=== PATIENT | male | born 1970 | race African-American/Black ===

== ENCOUNTER 2017-07-29 22:13 | Emergency (ER) | payer OTHER ==
[2017-07-29 22:28] VITALS: BP 150/86; PULSE 84; RESP 18; TEMP 98.5
[2017-07-29] MEDS ORDERED: PENICILLIN VK 500MG STARTER 4 TAB BTL PO STA (22:42)
[2017-07-29] MEDS ORDERED: ACET/COD 300 MG/30 MG STARTER PACK 6 TAB BTL PO STA (22:42)
--- NOTE | 2017-07-29 22:45 | ED ---
ENT HPI - General Chief complaint: Dental/Oral Stated complaint: Dental Time Seen by Provider: 07/29/17 22:32 Source: patient, RN notes reviewed, old records reviewed Mode of arrival: ambulatory Limitations: no limitations - History of Present Illness Initial comments: This is a 46 year old male with CC of left lower dental pain for 1 week. Patient reports that he is scheduled to have a root canal on left lower molar on Monday. Patient states that he is concered there may be infection as his face has started to swell over the past 2 days. Patient reports that he has been taking motrin for pain. Denies fever, chills, trismus, four odor or taste. Denies any dental trauma. - Related Data Home Medications Medication Instructions Recorded Confirmed Insulin Glargine [Lantus] 20 units SQ HS 04/22/16 04/22/16 metFORMIN HCL [Glucophage] 500 mg PO BID 04/22/16 04/22/16 Previous Rx's Medication Instructions Recorded glipiZIDE [Glucotrol] 5 mg PO AC-BRKFST #10 tab 04/22/16 Acetaminophen-Codeine 300-30mg 1 tab PO Q4H PRN #12 tablet 07/29/17 [Tylenol #3] Penicillin V Potassium [Pen Vee K] 500 mg PO QID #40 tab 07/29/17 Allergies Allergy/AdvReac Type Severity Reaction Status Date / Time No Known Allergies Allergy Verified 07/29/17 22:28 Review of Systems ROS Statement: Those systems with pertinent positive or pertinent negative responses have been documented in the HPI. ROS Other: All systems not noted in ROS Statement are negative. Past Medical History Past Medical History: Diabetes Mellitus History of Any Multi-Drug Resistant Organisms: None Reported Past Surgical History: No Surgical Hx Reported Past Psychological History: No Psychological Hx Reported Smoking Status: Never smoker Past Alcohol Use History: None Reported Past Drug Use History: None Reported General Exam - General Exam Comments Initial Comments: Well appearing 46 year old AA male. No distress. Limitations: no limitations General appearance: alert, in no apparent distress Head exam: Present: atraumatic, normocephalic, normal inspection Eye exam: Present: normal appearance, PERRL, EOMI. Absent: scleral icterus, conjunctival injection, periorbital swelling ENT exam: Present: normal exam, mucous membranes moist. Absent: normal oropharynx (multiple broken teeth, left lower molar has broken tooth with dental caries. ) Neck exam: Present: normal inspection. Absent: tenderness, meningismus, lymphadenopathy Respiratory exam: Present: normal lung sounds bilaterally. Absent: respiratory distress, wheezes, rales, rhonchi, stridor Cardiovascular Exam: Present: regular rate, normal rhythm, normal heart sounds. Absent: systolic murmur, diastolic murmur, rubs, gallop, clicks GI/Abdominal exam: Present: soft, normal bowel sounds. Absent: distended, tenderness, guarding, rebound, rigid Extremities exam: Present: normal inspection, full ROM, normal capillary refill. Absent: tenderness, pedal edema, joint swelling, calf tenderness Back exam: Present: normal inspection Neurological exam: Present: alert, oriented X3, CN II-XII intact Psychiatric exam: Present: normal affect, normal mood Skin exam: Present: warm, dry, intact, normal color. Absent: rash Course Vital Signs 07/29/17 22:26 Temperature 98.5 F Pulse Rate 84 Respiratory 18 Rate Blood Pressure 150/86 O2 Sat by Pulse 98 Oximetry Medical Decision Making - Medical Decision Making This is a 46 year old male with one week of lower left dental pain. Patient has broken left molar, and multiple caries. Swelling noted on left lower cheek and gum. Patient will be started on penicillin for concern for dental abscess. Patient has a root canal on Monday. Patient advised to keep appointment but to take the antibiotics. PAtient discharged with short course of pain medication, return parameters discussed. Disposition Clinical Impression: Dental abscess Disposition: HOME SELF-CARE Condition: Good Instructions: Dental Abscess (ED) Additional Instructions: Patient advised to follow-up with dental clinic on Monday. Return to emergency department if any worsening signs or symptoms occur including severe swelling. Prescriptions: Acetaminophen-Codeine 300-30mg [Tylenol #3] 1 tab PO Q4H PRN #12 tablet PRN Reason: Pain Penicillin V Potassium [Pen Vee K] 500 mg PO QID #40 tab Referrals: Nicholas Rinaldi MD [Primary Care Provider] - 1-2 days Time of Disposition: 22:44
== END 2017-07-29 23:03 | disposition home or self-care (01) ==
LOC: EC 22:13
DX: K04.7 Periapical abscess without sinus (principal); S02.5XXA Fracture of tooth (traumatic), initial encounter for closed fracture; K02.9 Dental caries, unspecified; E11.9 Type 2 diabetes mellitus without complications; Z79.4 Long term (current) use of insulin; X58.XXXA Exposure to other specified factors, initial encounter
CPT/HCPCS: 99283

== ENCOUNTER 2021-03-24 09:46 | Observation (INO) | payer OTHER ==
[2021-03-24] MEDS ORDERED: ASPIRIN 81 MG PO STA (10:00)
[2021-03-24] MEDS ORDERED: NITROGLYCERIN SL TABS 0.4 MG TAB SUBLINGUAL STA (10:04)
--- NOTE | 2021-03-24 10:08 | ED ---
Chest Pain HPI - General Chief Complaint: Chest Pain Stated Complaint: Chest Pain Time Seen by Provider: 03/24/21 09:51 Source: patient, RN notes reviewed Mode of arrival: ambulatory Limitations: no limitations - History of Present Illness Initial Comments: 50-year-old male presents emergency Department chief complaint left-sided chest pain. Patient states started on Monday has progressively worsened has improved at this time. Patient states that yesterday left-sided chest is getting worse with movement and rates his left arm shoulder region. Patient is known diabetic states history of cyst 3 years ago he found that he is a diabetic and was normal no prior cardiac cath. Patient states symptoms started today after his JJ vaccine. Patient denies any history of hypertension hyperlipidemia. Denies any nausea vomiting diarrhea abdominal pain leg pain, leg swelling - Related Data Home Medications Medication Instructions Recorded Confirmed Insulin Glargine [Lantus] 50 units SQ HS 04/22/16 03/24/21 Aspirin 162 mg PO HS 03/24/21 03/24/21 INSULIN ASPART (NovoLOG) [NovoLOG See Protocol SQ ACHS 03/24/21 03/24/21 (formulary)] Simvastatin [Zocor] 20 mg PO HS 03/24/21 03/24/21 Allergies Allergy/AdvReac Type Severity Reaction Status Date / Time No Known Allergies Allergy Verified 03/24/21 10:42 Review of Systems ROS Statement: Those systems with pertinent positive or pertinent negative responses have been documented in the HPI. ROS Other: All systems not noted in ROS Statement are negative. EKG Findings - EKG Comments: EKG Findings:: EKG performed at 9:53 normal sinus rhythm rate of 73 ID 194 QRS 84 QT/QTC 388/427. Q-wave V2V3 Past Medical History Past Medical History: Diabetes Mellitus History of Any Multi-Drug Resistant Organisms: None Reported Past Surgical History: No Surgical Hx Reported Past Psychological History: No Psychological Hx Reported Smoking Status: Never smoker Past Alcohol Use History: None Reported Past Drug Use History: None Reported General Exam Limitations: no limitations General appearance: alert, in no apparent distress Head exam: Present: atraumatic, normocephalic, normal inspection Eye exam: Present: normal appearance, PERRL, EOMI. Absent: scleral icterus, conjunctival injection, periorbital swelling Neck exam: Present: normal inspection, full ROM. Absent: tenderness, lymphadenopathy Respiratory exam: Present: normal lung sounds bilaterally. Absent: respiratory distress, wheezes, rales, rhonchi, stridor, chest wall tenderness Cardiovascular Exam: Present: regular rate, normal rhythm, normal heart sounds. Absent: systolic murmur, diastolic murmur, rubs, gallop, clicks GI/Abdominal exam: Present: soft, normal bowel sounds. Absent: distended, tenderness, guarding, rebound, rigid Neurological exam: Present: alert Skin exam: Present: warm, dry, intact, normal color. Absent: rash Course Vital Signs 03/24/21 03/24/21 09:47 10:21 Temperature 97.9 F Pulse Rate 71 72 Respiratory 16 18 Rate Blood Pressure 165/101 136/89 O2 Sat by Pulse 100 Oximetry - Reevaluation(s) Reevaluation #1: 03/24/21 10:48 AV EKG was performed there are some mild changes noted I did discuss case with Dr. Osei emergency department no immediate action patient be admitted and consult cardiology. Chest Pain MDM - [facility] 50-year-old male presented for chest pain. Patient's is improved after 1 nitro. EKG shows mild changes initial troponin is negative. Patiently admitted for cardiology evaluation. Disposition Clinical Impression: Chest pain Disposition: ADMITTED IP TO THIS HOSP Condition: Fair Referrals: Marco Pak MD [Primary Care Provider] - 1-2 days
--- NOTE | 2021-03-24 10:30 | XR ---
EXAMINATION TYPE: XR chest 2V DATE OF EXAM: 03/24/2021 COMPARISON: NONE HISTORY: Chest pain TECHNIQUE: Frontal and lateral views of the chest are obtained. FINDINGS: There is no focal air space opacity, pleural effusion, or pneumothorax seen. The cardiac silhouette size is within normal limits. There are overlying leads. There is a spinal curvature. The osseous structures are intact. IMPRESSION: No acute cardiopulmonary process.
[2021-03-24 10:40] LABS: ALT 22 U/L (4-49); AST 25 U/L (17-59); African American GFR (CKD) >90 (>60 ml/min/1.73 sqM); Albumin 4.2 g/dL (3.5-5.0); Alkaline Phosphatase 65 U/L (38-126); Anion Gap 7 mmol/L; Blood Urea Nitrogen 14 mg/dL (9-20); Calcium 9.7 mg/dL (8.4-10.2); Carbon Dioxide 26 mmol/L (22-30); Chloride 108 mmol/L (98-107); D-Dimer 0.25 mg/L FEU (<0.60); Glucose 89 mg/dL (74-99); INR 0.9 (<1.2); Magnesium 1.7 mg/dL (1.6-2.3); Non-African American GFR(CKD) >90 (>60 ml/min/1.73 sqM); Partial Thromboplastin Time 24.3 sec (22.0-30.0); Potassium 3.6 mmol/L (3.5-5.1); Prothrombin Time 9.9 sec (9.0-12.0); Sodium 141 mmol/L (137-145); Total Bilirubin 0.5 mg/dL (0.2-1.3); Total Protein 7.7 g/dL (6.3-8.2)
[2021-03-24 10:49] LABS: Basophils # (A) 0.1 k/uL (0-0.2); Basophils % (A) 1 %; Eosinophils # (A) 0.1 k/uL (0-0.7); Eosinophils % (A) 2 %; HCT 44.1 % (39.0-53.0); HGB 14.8 gm/dL (13.0-17.5); Lymphocytes # (A) 5.1 k/uL (1.0-4.8); Lymphocytes % (A) 57 %; MCHC 33.6 g/dL (31.0-37.0); MCV 86.4 fL (80.0-100.0); Mean Platelet Volume 7.6; Monocytes # (A) 0.4 k/uL (0-1.0); Monocytes % (A) 5 %; Neutrophils # (A) 3.1 k/uL (1.3-7.7); Neutrophils % (A) 34 %; Platelet Count 247 k/uL (150-450); RDW 13.1 % (11.5-15.5)
[2021-03-24] MEDS ORDERED: NITROGLYCERIN SL TABS 0.4 MG TAB SUBLINGUAL PRN (10:49)
[2021-03-24] MEDS ORDERED: HEPARIN SODIUM 1,000 UN/ML (10ML VL) IV ONE (10:49)
[2021-03-24] MEDS ORDERED: HEPARIN SOD,PORK IN 0.45% NACL 25,000 UNIT in 0.45% NACL 1 250ML.BAG IV SCH (11:00)
[2021-03-24 11:34] LABS: Anisocytosis (M) Present
--- NOTE | 2021-03-24 12:28 | P.HPIM ---
History of Present Illness H&P Date: 03/24/21 Chief Complaint: chest pain This is a 50-year-old male patient who presented to the hospital complaints of chest pain that has been intermittently occurring over the past 5-6 days. Patient reports he received a [employer] COVID-19 vaccine last day had some shoulder pain followed by intermittent chest pain that has been occurring over the past 4-5 days. Patient denies any associated diaphoresis. Patient denies any nausea vomiting or diarrhea. Patient denies any recent illness. Patient reports relief of chest pain after nitroglycerin. Patient does have past medical history of diabetes mellitus and hyperlipidemia. Patient reports that his father had known cardiovascular disease. Patient denies nicotine use. Chest x-ray was performed showing no acute cardiopulmonary process. Initial troponin negative. At this time patient will be admitted and cardiology services will be consulted. Patient denies any chest pain or shortness of breath. Patient denies nausea vomiting or diarrhea. Patient denies any urinary burning or frequency Review of Systems Please refer to HPI otherwise unremarkable Past Medical History Past Medical History: Diabetes Mellitus History of Any Multi-Drug Resistant Organisms: None Reported Past Surgical History: No Surgical Hx Reported Past Psychological History: No Psychological Hx Reported Smoking Status: Never smoker Past Alcohol Use History: None Reported Past Drug Use History: None Reported Medications and Allergies Home Medications Medication Instructions Recorded Confirmed Type Insulin Glargine [Lantus] 50 units SQ HS 04/22/16 03/24/21 History Aspirin 162 mg PO HS 03/24/21 03/24/21 History INSULIN ASPART (NovoLOG) [NovoLOG See Protocol SQ ACHS 03/24/21 03/24/21 History (formulary)] Simvastatin [Zocor] 20 mg PO HS 03/24/21 03/24/21 History Allergies Allergy/AdvReac Type Severity Reaction Status Date / Time No Known Allergies Allergy Verified 03/24/21 10:42 Physical Exam Vitals: Vital Signs Temp Pulse Resp BP Pulse Ox 03/24/21 10:21 72 18 136/89 03/24/21 09:47 97.9 F 71 16 165/101 100 Intake and Output 03/23/21 03/24/21 03/24/21 22:59 06:59 14:59 Other: Weight 91.172 kg Head normocephalic Neck supple Lungs clear to auscultation bilaterally no wheezing or crackles Heart regular rate and rhythm S1-S2, no rub or gallop Abdomen is soft nontender nondistended positive bowel sounds no hepatosplenomegaly Extremities no edema Neuro alert and orientated to 3 Results CBC & Chem 7: 03/24/21 10:06 03/24/21 10:06 Labs: Abnormal Lab Results - Last 24 Hours (Table) 03/24/21 03/24/21 Range/Units 10:06 10:06 Lymphocytes # 5.1 H (1.0-4.8) k/uL Chloride 108 H (98-107) mmol/L Assessment and Plan Assessment: 1. Chest pain. Initial troponin negative. Chest x-ray negative. Cardiology service is consulted and serial troponins ordered 2. Diabetes mellitus type 2. Home insulin ordered plus sliding scale coverage 3. Hyperlipidemia. Maintain on statin Time with Patient: Greater than 30
[2021-03-24] MEDS: INSULIN ASPART (NovoLOG) 100 UNIT/ML VIAL SQ SCH ×3 (15:27→22:00)
[2021-03-24 17:30] LABS: Glucose,Whole Blood 74 mg/dL (75-99)
[2021-03-24 20:08] LABS: Glucose,Whole Blood 127 mg/dL (75-99)
[2021-03-24] MEDS ORDERED: ATORVASTATIN 10 MG TAB PO SCH (21:00)
[2021-03-24] MEDS ORDERED: INSULIN DETEMIR (LEVEMIR) 100 UNIT/ML SYR SQ SCH (21:00)
[2021-03-25 03:09] VITALS: TEMP 97.9
[2021-03-25 06:45] LABS: Glucose,Whole Blood 48 mg/dL (75-99)
[2021-03-25 06:45] LABS: Glucose,Whole Blood 60 mg/dL (75-99)
[2021-03-25 07:10] LABS: Glucose,Whole Blood 111 mg/dL (75-99)
[2021-03-25 07:45] VITALS: BP 133/81; PULSE 62; RESP 18
[2021-03-25] MEDS: INSULIN ASPART (NovoLOG) 100 UNIT/ML VIAL SQ SCH (08:42)
[2021-03-25] MEDS ORDERED: ASPIRIN 325 MG TAB PO SCH (09:00)
[2021-03-25] MEDS ORDERED: lisinopriL 5 MG TAB PO SCH (09:15)
[2021-03-25 09:50] LABS: Basophils # (A) 0.05 X 10*3/uL (0.00-0.10); Basophils % (A) 0.7 %; Eosinophils % (A) 1.3 %; HCT 43.6 % (39.6-50.0); HGB 14.1 g/dL (13.0-17.0); Lymphocytes # (A) 4.29 X 10*3/uL (0.90-5.00); Lymphocytes % (A) 56.2 %; MCH 28.6 pg (27.0-32.0); MCHC 32.3 g/dL (32.0-37.0); MCV 88.4 fL (80.0-97.0); Monocytes # (A) 0.53 X 10*3/uL (0.20-1.00); Monocytes % (A) 6.9 %; Neutrophils # (A) 2.65 X 10*3/uL (1.80-7.70); Neutrophils % (A) 34.6 %; Platelet Count 231 X 10*3/uL (140-440); RBC 4.93 X 10*6/uL (4.40-5.60); RDW 12.4 % (11.5-14.5); WBC 7.64 X 10*3/uL (4.50-10.00)
--- NOTE | 2021-03-25 10:48 | P.DS ---
Providers Date of admission: 03/24/21 11:37 Expected date of discharge: 03/25/21 Attending physician: Marco Pak Consults: 03/24/21 10:48 Consult Physician Urgent Consulting Provider: Masood Osei Consult Reason/Comments: chest pain Do you want consulting provider notified?: Yes Primary care physician: Marco Pak [facility] Course: Discharge diagnosis 1. Chest pain. Initial troponin negative. Chest x-ray negative. Cardiology service is consulted and serial troponins ordered. Syrup serial troponins negative 3. 2-D echo was completed. 2. Diabetes mellitus type 2. Home insulin ordered plus sliding scale coverage 3. Hyperlipidemia. Maintain on statin Hospital course This is a 50-year-old male patient who presented to the hospital complaints of chest pain that has been intermittently occurring over the past 5-6 days. Patient reports he received a [employer] COVID-19 vaccine last had some shoulder pain followed by intermittent chest pain that has been occurring over the past 4-5 days. Patient denies any associated diaphoresis. Patient denies any nausea vomiting or diarrhea. Patient denies any recent illness. Patient reports relief of chest pain after nitroglycerin. Patient does have past medical history of diabetes mellitus and hyperlipidemia. Patient reports that his father had known cardiovascular disease. Patient denies nicotine use. Chest x-ray was performed showing no acute cardiopulmonary process. Initial troponin negative. At this time patient will be admitted and cardiology services will be consulted. Patient denies any chest pain or shortness of breath. Patient denies nausea vomiting or diarrhea. Patient denies any urinary burning or frequency On 03/25/2021 patient is alert and oriented 3. Troponins were negative 3. Patient has been chest pain free throughout the night. Discussed case with cardiology team nurse practitioner Allegra. Recommend patient be discharged home and follow-up outpatient for further workup. Lisinopril added per cardiology okay to DC aspirin per cardiology. Patient cleared for discharge from cardiology standpoint 2-D echo is pending will follow-up outpatient. At this time patient denies chest pain or shortness breath. Patient denies nausea vomiting or diarrhea. Patient denies any urinary burning or frequency Patient Condition at Discharge: Stable Plan - Discharge Summary Discharge Rx Participant: No New Discharge Prescriptions: New lisinopriL [Zestril] 5 mg PO DAILY 30 Days #30 tab Continue Insulin Glargine [Lantus] 50 units SQ HS Simvastatin [Zocor] 20 mg PO HS INSULIN ASPART (NovoLOG) [NovoLOG (formulary)] See Protocol SQ ACHS Discontinued Aspirin 162 mg PO HS Discharge Medication List Insulin Glargine [Lantus] 50 units SQ HS 04/22/16 [History] INSULIN ASPART (NovoLOG) [NovoLOG (formulary)] See Protocol SQ ACHS 03/24/21 [History] Simvastatin [Zocor] 20 mg PO HS 03/24/21 [History] lisinopriL [Zestril] 5 mg PO DAILY 30 Days #30 tab 03/25/21 [Rx] Follow up Appointment(s)/Referral(s): Martinez Hilario MD [STAFF PHYSICIAN] - 2 Weeks Marco Pak MD [Primary Care Provider] - 1-2 days Activity/Diet/Wound Care/Special Instructions: Activity as tolerated Diet heart healthy diabetic Discharge Disposition: HOME SELF-CARE
--- NOTE | 2021-03-25 11:58 | P.CRDCN ---
History of Present Illness History of present illness: HISTORY OF PRESENTING ILLNESS This is a pleasant 50-year-old male past medical history significant for Type 2 Diabetes and Dyslipidemia. 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 We have been asked to see in consultation for chest pain. Patient states he has been having left sided chest pain intermittently over the past 5-6 days. Patient reports he received a [employer] COVID-19 vaccine last had some shoulder pain followed by intermittent chest pain that has been occurring over the past 4-5 days. During this time he states he's been lifting a lot of heavy things recently. His chest pain has been getting worse and decided to present to the emergency department. Chest pain is located left sided. It is non-radiating, non-exertional. He does state that the Nitro helped relieve his pain. No specific aggravating factors or alleviating factors. He currently has some chest pain. When he takes a deep breath his chest pain does resolve. He does state this was similar to when he was diagnosed with Diabetes. Patient denies any associated shortness of breath, diaphoresis, nausea, vomiting, palpitations. He is a non-smoker. He denies history of coronary artery disease, VA, or stroke. He has a history of family with father having an VA. He states he did have similar chest pain 5-6 years ago and underwent stress test which was negative. Patient ambulating in halls, walking with exertion and no longer having chest pain. Patient states he currently takes aspirin 162 mg daily he decided to this medication he was not prescribed. He takes a simvastatin 20mg nightly. Patient was hypoglycemic overnight blood sugars 40-60. DIAGNOSTICS EKG reveals sinus rhythm, heart rate 73, T wave inversion in 3, early repolarization in the anterior leads. No prior EKG to compare Telemetry tracings indicate sinus mechanism heart rate in the 70s Chest xray No acute cardiopulmonary process Laboratory reviewed, troponin negative x 3, d-dimer negative, sodium 141, potassium 3.6, serum creatinine 0.89, BUN 14, magnesium 1.7, COVID-19 negative, CBC unremarkable Current home cardiac medications include aspirin daily, and simvistatin 20mg nightly. REVIEW OF SYSTEMS At the time of my exam: CONSTITUTIONAL: Denies fever or chills. CARDIOVASCULAR: +chest pain Denies shortness of breath, orthopnea, PND or palpitations. RESPIRATORY: Denies cough. GASTROINTESTINAL: Denies abdominal pain, diarrhea, constipation, nausea or vomiting. MUSCULOSKELETAL: Denies myalgias. NEUROLOGIC: Denies numbness, tingling, headacbe or weakness. ENDOCRINE: Denies fatigue, weight change, polydipsia or polyurina. GENITOURINARY: Denies burning, hematuria or urgency with micturation. HEMATOLOGIC: Denies history of anemia or bleeding. PHYSICAL EXAMINATION Blood pressure 133/81 heart rate 62 afebrile and maintaining oxygen saturation 98% on room air CONSTITUTIONAL: No apparent distress. HEENT: Head is normocephalic. Pupils are equal, round. Sclerae anicteric. Mucous membranes of the mouth are moist. No JVD. No carotid bruit. CHEST EXAMINATION: Lungs are clear to auscultation. No chest wall tenderness is noted on palpation or with deep breathing. HEART EXAMINATION: Regular rate and rhythm. S1, S2 heard. No murmurs, gallops or rub. ABDOMEN: Soft, nontender. Positive bowel sounds. EXTREMITIES: 2+ peripheral pulses, no lower extremity edema and no calf tenderness. NEUROLOGIC EXAMINATION: Patient is awake, alert and oriented x3. ASSESSMENT Chest pain, atypical, acute coronary syndrome has been ruled out Type 2 Diabetes Hypertension- not on medications at home Dyslipidemia PLAN An acute coronary event has been ruled out with no EKG evidence of ischemia and negative cardiac enzymes. Obtain 2D echocardiogram and doppler study to assess cardiac structure and function. Lipid panel Blood sugar management per primary Recommend stopping aspirin Start Lisinopril 5mg daily Continue Statin Recommend following up with Dr. Hilario in the outpatient office for further testing within 2 weeks. From cardiology perspective patient is stable to be discharge at this time. We will follow up with Echo results with the patient. Nurse Practitioner note has been reviewed, I agree with a documented findings and plan of care. Patient was seen and examined. Past Medical History Past Medical History: Diabetes Mellitus, Hyperlipidemia Additional Past Medical History / Comment(s): IDDM type II History of Any Multi-Drug Resistant Organisms: None Reported Past Surgical History: No Surgical Hx Reported Additional Past Surgical History / Comment(s): Colonoscopy Past Anesthesia/Blood Transfusion Reactions: No Reported Reaction Smoking Status: Never smoker - Past Family History Mother History Unknown: Yes Additional Family Medical History / Comment(s): Mother is , pt does not know her medical hx Father Family Medical History: Myocardial Infarction (VA) Additional Family Medical History / Comment(s): Father of a VA at the age of 76/77yrs. Medications and Allergies Home Medications Medication Instructions Recorded Confirmed Type Insulin Glargine [Lantus] 50 units SQ HS 04/22/16 03/24/21 History INSULIN ASPART (NovoLOG) [NovoLOG See Protocol SQ ACHS 03/24/21 03/24/21 History (formulary)] Simvastatin [Zocor] 20 mg PO HS 03/24/21 03/24/21 History lisinopriL [Zestril] 5 mg PO DAILY 30 Days #30 tab 03/25/21 Rx Allergies Allergy/AdvReac Type Severity Reaction Status Date / Time No Known Allergies Allergy Verified 03/24/21 10:42 Physical Exam Vitals: Vital Signs Temp Pulse Resp BP Pulse Ox 03/24/21 10:21 72 18 136/89 03/24/21 09:47 97.9 F 71 16 165/101 100 Intake and Output 03/24/21 03/24/21 03/24/21 06:59 14:59 22:59 Other: Weight 91.172 kg 91.172 kg Results 03/25/21 04:58 03/24/21 10:06 Cardiac Enzymes 03/24/21 03/24/21 03/24/21 Range/Units 10:06 10:06 12:37 AST 25 (17-59) U/L Troponin I <0.012 <0.012 (0.000-0.034) ng/mL Coagulation 03/24/21 Range/Units 10:06 PT 9.9 (9.0-12.0) sec APTT 24.3 (22.0-30.0) sec CBC 03/24/21 Range/Units 10:06 WBC 9.0 (3.8-10.6) k/uL RBC 5.10 (4.30-5.90) m/uL Hgb 14.8 (13.0-17.5) gm/dL Hct 44.1 (39.0-53.0) % Plt Count 247 (150-450) k/uL Comprehensive Metabolic Panel 03/24/21 Range/Units 10:06 Sodium 141 (137-145) mmol/L Potassium 3.6 (3.5-5.1) mmol/L Chloride 108 H (98-107) mmol/L Carbon Dioxide 26 (22-30) mmol/L BUN 14 (9-20) mg/dL Creatinine 0.89 (0.66-1.25) mg/dL Glucose 89 (74-99) mg/dL Calcium 9.7 (8.4-10.2) mg/dL AST 25 (17-59) U/L ALT 22 (4-49) U/L Alkaline Phosphatase 65 (38-126) U/L Total Protein 7.7 (6.3-8.2) g/dL Albumin 4.2 (3.5-5.0) g/dL Current Medications Generic Name Dose Route Start Last Admin Trade Name Freq PRN Reason Stop Dose Admin Aspirin 325 mg 03/25/21 09:00 Aspirin 325 Mg Tab PO DAILY [facility] Atorvastatin Calcium 10 mg 03/24/21 21:00 Atorvastatin 10 Mg Tab PO HS [facility] Heparin Sodium/Sodium Chloride 250 mls @ 10.029 mls/hr 03/24/21 11:00 03/24/21 11:36 25,000 unit/ Sodium Chloride IV 11 units/kg/hr .Q24H [facility] 10.029 mls/hr Administration Protocol 11 UNITS/KG/HR Insulin Aspart 0 unit 03/24/21 12:30 03/24/21 15:27 Insulin Aspart (Novolog) 100 Unit/Ml Vial SQ Not Given ACHS [facility] Protocol Insulin Detemir 50 unit 03/24/21 21:00 Insulin Detemir (Levemir) 100 Unit/Ml Syr SQ HS [facility] Nitroglycerin 0.4 mg 03/24/21 10:49 Nitroglycerin Sl Tabs 0.4 Mg Tab SUBLINGUAL Q5M PRN Chest Pain Intake and Output 03/24/21 03/24/21 03/24/21 06:59 14:59 22:59 Other: Weight 91.172 kg 91.172 kg Patient Weight 03/25/21 06:59 Weight 91.172 kg 03/24/21 10:06 03/24/21 10:06
--- NOTE | 2021-03-25 12:44 | ECHOF ---
Referral Reason:chest pain MEASUREMENTS -------- HEIGHT: 182.9 cm WEIGHT: 9.1 kg BP: IVSd: 1.2 cm (0.6 - 1.1) LVIDd: 5.0 cm (3.9 - 5.3) LVPWd: 1.2 cm (0.6 - 1.1) EDV(Teich): 116 ml IVSs: 1.4 cm LVIDs: 3.5 cm LVPWs: 1.9 cm %IVS Thck: 21 % ESV(Teich): 50 ml EF(Teich): 57 % %FS: 30 % SV(Teich): 66 ml LA Diam: 3.4 cm (2.7 - 3.8) RVIDd: 2.7 cm (< 3.3) Ao Diam: 2.8 cm (2.0 - 3.7) LA Diam: 3.9 cm (2.7 - 3.8) AV Cusp: 2.2 cm (1.5 - 2.6) EPSS: 0.8 cm MV E Luis: 0.59 m/s MV DecT: 203 ms MV Dec [place]: 2.9 m/s MV A Luis: 0.60 m/s MV E/A Ratio: 0.98 MV PHT: 59 ms TR Vmax: 1.74 m/s TR maxP.13 mmHg RAP: 5.00 mmHg RVSP: 17.13 mmHg MV EF SLOPE: 105.59 mm/s (70 - 150) MV EXCURSION: 25.81 mm (> 18.000) FINDINGS -------- Sinus rhythm. This was a technically good study. The left ventricular size is normal. There is mild concentric left ventricular hypertrophy. Overa ll left ventricular systolic function is mildly impaired with, an EF between 45 - 50 %. The right ventricle is normal in size. The left atrial size is normal. The right atrial size is normal. The aortic valve is trileaflet, and appears structurally normal. No aortic stenosis or regurgitation. Mild mitral regurgitation is present. Mild tricuspid regurgitation present. Right ventricular systolic pressure is normal at < 35 mmHg. There is no pulmonic regurgitation present. There is no pericardial effusion. CONCLUSIONS -------- 1. The left ventricular size is normal. 2. There is mild concentric left ventricular hypertrophy. 3. Overall left ventricular systolic function is mildly impaired with, an EF between 45 - 50 %. 4. The right ventricle is normal in size. 5. The left atrial size is normal. 6. The right atrial size is normal. 7. The aortic valve is trileaflet, and appears structurally normal. No aortic stenosis or regurgitati on. 8. Mild mitral regurgitation is present. 9. Mild tricuspid regurgitation present. 10. There is no pericardial effusion. DAMAGE ADJUSTER: Brittany Gonzalez RDCS
[2021-03-25 12:57] LABS: Albumin 3.6 g/dL (3.80-4.90); Albumin/Globulin Ratio 1.2 (1.60-3.17); BUN/Creat Ratio 17.78 Ratio (12.00-20.00); Calcium 9.3 mg/dL (8.7-10.3); Chol/HDL Ratio 3.75; Non-African American GFR(CKD) 99.2 (60.0-200.0); Potassium 3.7 mmol/L (3.5-5.5); Total Bilirubin 0.5 mg/dL (0.2-1.2); Total Protein 6.6 g/dL (6.2-8.2)
== END 2021-03-25 11:28 | disposition home or self-care (01) ==
LOC: EC 09:46 → 6NMEDSUR 11:37
PROVIDERS: ADMIT Internal Medicine; ATTEND Internal Medicine
DX: R07.89 Other chest pain (principal); M25.519 Pain in unspecified shoulder; E78.5 Hyperlipidemia, unspecified; I10 Essential (primary) hypertension; E11.649 Type 2 diabetes mellitus with hypoglycemia without coma; Z82.49 Family history of ischemic heart disease and other diseases of the circulatory system; Z79.4 Long term (current) use of insulin; Z79.82 Long term (current) use of aspirin; Z79.899 Other long term (current) drug therapy; Z20.822 Contact with and (suspected) exposure to COVID-19
CPT/HCPCS: 96366 ×3; 96365; 99285; 36415; 93005; 93306; 85379; 80061; 80053 ×2; 83735; 84484; 85025 ×2; 85610; 85730 ×2; 87635; 71046; G0378 ×2; J1644 ×2